=== PATIENT | male | born 1945 | race Caucasian/White ===

== ENCOUNTER 2020-04-07 07:31 | Outpatient (CLI) | payer MEDICARE, SELFPAY ==
[2020-04-07 08:19] LABS: Hematocrit 41.7 % (42.0-52.0); Hemoglobin 13.9 g/dL (14.0-18.0); Mean Corpuscular HGB Conc 33.3 g/dl (32-36); Mean Corpuscular Hemoglobin 31.5 pg (26-34); Mean Corpuscular Volume 94.6 fl (80-100); Mean Platelet Volume 9.2 fl (7.4-10.4); Platelet Count Result 221 k/mm3 (150-375); Red Blood Count 4.41 M/mm3 (4.6-6.20); Red Cell Distribution Width 12.9 % (11.5-14.5); White Blood Count 6.6 K/mm3 (4.5-10.0)
[2020-04-07 08:35] LABS: Hemoglobin A1C 5.9 % (<5.7); Potassium 4.1 mmol/L (3.4-5.0)
[2020-04-07 08:36] LABS: Alanine Aminotransferase 14 U/L (4-50); Albumin Level 4.1 g/dL (3.5-5.1); Alkaline Phosphatase 63 U/L (38-126); Aspartate Amino Transferase 23 U/L (17-59); Bilirubin,Total 0.5 mg/dL (0.2-1.3); Blood Urea Nitrogen 13 mg/dL (9-20); Calcium 8.8 mg/dL (8.4-10.2); Carbon Dioxide 29 mmol/L (22-30); Chloride 101 mmol/L (98-107); Estimated Glomerular Filt Rate > 60; Glucose 99 mg/dL (75-110); Sodium 134 mmol/L (137-145)
[2020-04-07 08:48] LABS: Creatinine Urine 78.4 mg/dL
[2020-04-07 09:06] LABS: Prostate Specific Antigen 0.9 ng/mL (< OR = 4.0)
[2020-04-07 09:12] LABS: MALB Creatinine Ratio < 7.7 mg/g (0-30); Microalbumin Urine Random < 6.0 mg/L (0-16.7)
== END 2020-04-07 07:32 | disposition home or self-care (01) ==
PROVIDERS: PCP Internal Medicine; Visit Provider Internal Medicine
DX: Z12.5 Encounter for screening for malignant neoplasm of prostate (principal); I10 Essential (primary) hypertension; E11.9 Type 2 diabetes mellitus without complications
CPT/HCPCS: 36415; 80053; 82043; 83036; 84153; 85027; G0103

== ENCOUNTER 2020-05-26 11:52 | Outpatient (CLI) | payer MEDICARE, SELFPAY ==
--- NOTE | ~2020-05-26 | XR_ITS ---
EXAMINATION: XR ribs BI 3V w CXR 2V INDICATION: Bilateral rib pain TECHNIQUE: PA and lateral views of the chest and 3 views of the bilateral ribs were obtained. COMPARISON: 07/12/2019 FINDINGS: There is subsegmental atelectasis of the lower lobes. No focal airspace opacities are ident ified. There is no pleural effusion or pneumothorax. There is moderate thoracic spondylosis. Healing bilateral rib fractures are noted. No acute rib fracture is identified. There is an unchanged T12 com pression fracture. IMPRESSION: 1. Subsegmental atelectasis. 2. Healed bilateral rib fractures and chronic T12 compression fracture without acute fracture identif ied. Reviewed, dictated and finalized at location A. IMPRESSION: 1. Subsegmental atelectasis. 2. Healed bilateral rib fractures and chronic T12 compression fracture without acute fracture identified.
--- NOTE | ~2020-05-26 | CT_ITS ---
EXAMINATION: CT lung screening DATE: 05/26/2020 12:36 INDICATION: Personal history of tobacco dependence, current smoker with 64 pack year history TECHNIQUE: Computed tomography (CT) of the chest was performed without intravenous contrast. The dose -length product (DLP) was 78.86 mGy-cm. Automated exposure control and iterative reconstruction techn ique were employed. COMPARISON: 07/16/2019 FINDINGS: There is mild emphysema. No suspicious pulmonary nodules are identified. There is no pleura l effusion or pneumothorax. Mild atelectasis is noted in the lung bases. Healing bilateral rib fractu res are noted. No pathologically enlarged thoracic lymph nodes are identified. The heart size is norm al. Calcified coronary artery atherosclerosis is noted. There is subendocardial fat deposition in the lateral wall of the left ventricle, consistent with prior myocardial infarction. Calcified pulmonary nodules and calcified right hilar and mediastinal lymph nodes are consistent with old granulomatous disease. There is stable fusiform enlargement of the ascending aorta which measures up to 4.2 cm. No dissection is identified. Punctate calcifications in an otherwise normal spleen likely represent heal ed granulomatous disease. IMPRESSION: 1. Lung-RADS category 2: Benign appearance or behavior. Continue annual screening with noncontrast lo w-dose chest CT in 12 months. Reviewed, dictated and finalized at location A. IMPRESSION: 1. Lung-RADS category 2: Benign appearance or behavior. Continue annual screeni ng with noncontrast low-dose chest CT in 12 months.
== END 2020-05-26 11:53 | disposition home or self-care (01) ==
PROVIDERS: PCP Internal Medicine; Visit Provider Internal Medicine
DX: Z87.891 Personal history of nicotine dependence (principal); R91.8 Other nonspecific abnormal finding of lung field
CPT/HCPCS: 71046; 71110; G0297

== ENCOUNTER 2020-07-22 13:30 | Outpatient (RCR) | payer MEDICARE, SELFPAY ==
[2020-04-30 15:48] VITALS: PULSE 63
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
--- NOTE | 2020-06-02 09:11 | PCCPR ---
Absent 06/02 & 06/03-feeling sore from his bruised ribs and exercising here on Sunday.
== END 2020-07-22 19:00 | disposition home or self-care (01) ==
LOC: ANHCPREHAB 13:30
PROVIDERS: PCP Internal Medicine
DX: Z95.5 Presence of coronary angioplasty implant and graft (principal)
CPT/HCPCS: 93798

== ENCOUNTER 2020-11-11 07:38 | Outpatient (CLI) | payer MEDICARE, SELFPAY ==
[2020-11-11 07:52] LABS: Basophils Percent Auto 0.5 % (0.2-1.2); Eosinophils Absolute Auto 0.2 K/mm3 (0-0.3); Eosinophils Percent Auto 2.7 % (0-4.4); Hematocrit 42.4 % (42.0-52.0); Hemoglobin 13.9 g/dL (14.0-18.0); Immature Granulocyte Absolute 0.02 K/mm3 (0.00-0.031); Immature Granulocyte Percent A 0.3 % (0-0.5); Lymphocytes Absolute Auto 1.83 K/mm3 (0.9-3.2); Lymphocytes Percent Auto 25.1 % (18.3-44.2); Mean Corpuscular HGB Conc 32.8 g/dl (32-36); Mean Corpuscular Hemoglobin 31.4 pg (26-34); Mean Corpuscular Volume 95.7 fl (80-100); Mean Platelet Volume 8.9 fl (7.4-10.4); Monocytes Absolute Auto 0.5 K/mm3 (0.1-0.6); Monocytes Percent Auto 7.4 % (2.6-8.5); Neutrophils Absolute Auto 4.7 K/mm3 (1.3-6.7); Platelet Count Result 209 k/mm3 (150-375); Red Blood Count 4.43 M/mm3 (4.6-6.20); Red Cell Distribution Width 12.3 % (11.5-14.5); White Blood Count 7.3 K/mm3 (4.5-10.0)
[2020-11-11 08:05] LABS: Alanine Aminotransferase 12 U/L (4-50); Albumin Level 4.1 g/dL (3.5-5.1); Alkaline Phosphatase 57 U/L (38-126); Anion Gap 3 mmol/L (8-16); Aspartate Amino Transferase 21 U/L (17-59); Bilirubin,Total 0.6 mg/dL (0.2-1.3); Blood Urea Nitrogen 14 mg/dL (9-20); Calcium 9.1 mg/dL (8.4-10.2); Carbon Dioxide 33 mmol/L (22-30); Chloride 102 mmol/L (98-107); Estimated Glomerular Filt Rate > 60; Glucose 100 mg/dL (75-110); Hemoglobin A1C 5.7 % (<5.7); Potassium 4.1 mmol/L (3.4-5.0); Sodium 138 mmol/L (137-145)
[2020-11-11 08:23] LABS: Creatinine Urine 86.5 mg/dL
[2020-11-11 08:35] LABS: MALB Creatinine Ratio < 6.9 mg/g (0-30); Microalbumin Urine Random < 6.0 mg/L (0-16.7)
[2020-11-11 08:38] LABS: Prostate Specific Antigen 0.9 ng/mL (< OR = 4.0)
== END 2020-11-11 07:39 | disposition home or self-care (01) ==
LOC: ANHLAB 07:41
PROVIDERS: PCP Internal Medicine; Visit Provider Internal Medicine
DX: E78.2 Mixed hyperlipidemia (principal); I25.10 Atherosclerotic heart disease of native coronary artery without angina pectoris; R73.01 Impaired fasting glucose; I10 Essential (primary) hypertension; Z12.5 Encounter for screening for malignant neoplasm of prostate
CPT/HCPCS: 36415; 80053; 82043; 83036; 84153; 85025; G0103

== ENCOUNTER 2021-08-19 09:37 | Outpatient (CLI) | payer MEDICARE, SELFPAY ==
[2021-08-19 10:19] LABS: Basophils Percent Auto 0.6 % (0.2-1.2); Eosinophils Absolute Auto 0.2 K/mm3 (0-0.3); Eosinophils Percent Auto 2.7 % (0-4.4); Hematocrit 44.4 % (42.0-52.0); Hemoglobin 14.6 g/dL (14.0-18.0); Immature Granulocyte Absolute 0.02 K/mm3 (0.00-0.031); Immature Granulocyte Percent A 0.3 % (0-0.5); Lymphocytes Absolute Auto 1.64 K/mm3 (0.9-3.2); Lymphocytes Percent Auto 24.2 % (18.3-44.2); Mean Corpuscular HGB Conc 32.9 g/dl (32-36); Mean Corpuscular Hemoglobin 32.3 pg (26-34); Mean Corpuscular Volume 98.2 fl (80-100); Mean Platelet Volume 8.9 fl (7.4-10.4); Monocytes Absolute Auto 0.5 K/mm3 (0.1-0.6); Neutrophils Absolute Auto 4.4 K/mm3 (1.3-6.7); Neutrophils Percent Auto 64.2 % (45.5-73.1); Platelet Count Result 201 k/mm3 (150-375); Red Blood Count 4.52 M/mm3 (4.6-6.20); Red Cell Distribution Width 12.7 % (11.5-14.5); White Blood Count 6.8 K/mm3 (4.5-10.0)
[2021-08-19 10:33] LABS: Alanine Aminotransferase 16 U/L (4-50); Albumin Level 4.2 g/dL (3.5-5.1); Alkaline Phosphatase 56 U/L (38-126); Anion Gap 4 mmol/L (8-16); Aspartate Amino Transferase 23 U/L (17-59); Bilirubin,Total 0.6 mg/dL (0.2-1.3); Blood Urea Nitrogen 15 mg/dL (9-20); Calcium 9.1 mg/dL (8.4-10.2); Carbon Dioxide 34 mmol/L (22-30); Chloride 100 mmol/L (98-107); Cholesterol 104 mg/dL (0-200); Estimated Glomerular Filt Rate > 60; Glucose 101 mg/dL (65-110); HDL Direct 34 mg/dL; Potassium 4.2 mmol/L (3.4-5.0); Sodium 138 mmol/L (137-145); Triglycerides 137 mg/dL (<150)
[2021-08-19 10:44] LABS: LDL Cholesterol Direct 42 mg/dL
[2021-08-19 11:03] LABS: Prostate Specific Antigen 0.8 ng/mL (< OR = 4.0); Thyroid Stimulating Hormone 0.779 uIU/mL (0.465-4.680)
[2021-08-19 11:37] LABS: Hemoglobin A1C 5.8 % (<5.7)
[2021-08-19 14:11] LABS: Vitamin D 25 Hydroxy 53.3 ng/mL
== END 2021-08-19 09:38 | disposition home or self-care (01) ==
LOC: ANHLAB 09:54
PROVIDERS: PCP Internal Medicine; Visit Provider Internal Medicine
DX: E11.9 Type 2 diabetes mellitus without complications (principal); I25.10 Atherosclerotic heart disease of native coronary artery without angina pectoris; E55.9 Vitamin D deficiency, unspecified; E78.2 Mixed hyperlipidemia; I10 Essential (primary) hypertension; Z12.5 Encounter for screening for malignant neoplasm of prostate
CPT/HCPCS: 36415; 80053; 80061; 82306; 83036; 84153; 84443; 85025; G0103

== ENCOUNTER 2021-09-22 09:10 | Outpatient (CLI) | payer MEDICARE, SELFPAY ==
--- NOTE | ~2021-09-22 | CT_ITS ---
EXAMINATION: CT lung screening DATE: 09/22/2021 09:31 INDICATION: Personal history of nicotine dependence TECHNIQUE: Computed tomography (CT) of the chest was performed without intravenous contrast. The dose -length product was 106.00 mGy-cm. Automated exposure control and iterative reconstruction technique were employed. COMPARISON: CT dated 05/26/2020 FINDINGS: No significant pleural or pericardial effusion. There is atherosclerosis of the aorta and c oronary arteries. No mediastinal lymphadenopathy. There are calcified granulomas of the spleen. There is bilateral lower and right middle lobe atelectasis. There are calcified granulomas of the lung par enchyma. There is 2 mm left upper lobe nodule which is not clearly calcified. There is a 2 mm left lo wer lobe nodule, also not definitely calcified. There is elevation of the right diaphragm, suspicious for phrenic nerve paralysis. There is a superior endplate compression fracture of T12 which is chron ic. No focal airspace consolidation. There is emphysema. No endobronchial lesions. No pneumothorax.. IMPRESSION: 1. Lung-RADS category 2: Benign appearance or behavior. Continue annual screening with noncontrast lo w-dose chest CT in 12 months. Reviewed, dictated and finalized at location B. WELDER IMPRESSION: 1. Lung-RADS category 2: Benign appearance or behavior. Continue annual screeni ng with noncontrast low-dose chest CT in 12 months.
== END 2021-09-22 09:11 | disposition home or self-care (01) ==
LOC: ANHIMG 09:14
PROVIDERS: PCP Internal Medicine; Visit Provider Internal Medicine
DX: Z12.2 Encounter for screening for malignant neoplasm of respiratory organs (principal); Z87.891 Personal history of nicotine dependence
CPT/HCPCS: 71271

== ENCOUNTER 2022-03-01 07:50 | Outpatient (CLI) | payer MEDICARE, SELFPAY ==
[2022-03-01 08:32] LABS: Alanine Aminotransferase 13 U/L (6-50); Albumin Level 4.4 g/dL (3.5-5.1); Alkaline Phosphatase 59 U/L (38-126); Anion Gap 6 mmol/L (8-16); Aspartate Amino Transferase 24 U/L (17-59); Bilirubin,Total 0.4 mg/dL (0.2-1.3); Blood Urea Nitrogen 13 mg/dL (9-20); Calcium 8.8 mg/dL (8.4-10.2); Carbon Dioxide 30 mmol/L (22-30); Chloride 103 mmol/L (98-107); Estimated Glomerular Filt Rate > 60; Glucose 101 mg/dL (65-110); Potassium 4.3 mmol/L (3.4-5.0); Sodium 139 mmol/L (137-145)
[2022-03-01 08:39] LABS: Hemoglobin A1C 5.7 % (<5.7)
[2022-03-01 08:40] LABS: Creatinine Urine 84.8 mg/dL
[2022-03-01 08:46] LABS: MALB Creatinine Ratio < 7.1 mg/g (0-30); Microalbumin Urine Random < 6.0 mg/L (0-16.7)
== END 2022-03-01 07:51 | disposition home or self-care (01) ==
PROVIDERS: PCP Internal Medicine; Visit Provider Internal Medicine
DX: R73.01 Impaired fasting glucose (principal); E78.2 Mixed hyperlipidemia
CPT/HCPCS: 36415; 80053; 82043; 83036

== ENCOUNTER 2022-03-22 09:41 | Outpatient (CLI) | payer MEDICARE, SELFPAY ==
--- NOTE | ~2022-03-22 | MR_ITS ---
EXAMINATION: MR lumbar spine wo/w con DATE: 03/22/2022 10:56 INDICATION: Other intervertebral disc degeneration, lumbar region. Chronic back pain. TECHNIQUE: Magnetic resonance imaging (MRI) of the lumbar spine was performed without and with 15 mL MultiHance intravenous contrast. Sequences included sagittal T2-weighted FSE, sagittal T2-weighted FS FSE, and sagittal and axial T1-weighted FSE. Postcontrast sequences included axial T2-weighted FSE a nd axial and sagittal T1-weighted FS FSE. COMPARISON: Lumbar spine MRI 11/20/2016 FINDINGS: There is 11 degrees dextroscoliosis of lumbar spine. There is 4 mm anterolisthesis of L1 on L2 and 4 mm retrolisthesis of L2 on L3 and L3 on L4. There is a chronic burst fracture of T12 with 3 /5 loss of height and retropulsion of bone 2 mm into central spinal canal. There is mildly decreased disc height at T12-L1 and severely decreased disc height from L1-L2 through L5-S1 with endplate remod eling. The distal spinal cord signal intensity is normal. The conus medullaris is at T12-L1. The foll owing disc levels are specifically discussed: L1-L2: The disc is bulging and has an annular fissure. There is severe bilateral facet joint osteoart hritis. There is mild bilateral neural foraminal stenosis. There is mild central canal stenosis. L2-L3: The disc is bulging and has an annular fissure. There is mild bilateral facet joint osteoarthr itis. There is mild bilateral neural foraminal stenosis. There is mild central canal stenosis. L3-L4: The disc is bulging and has an annular fissure. There is mild bilateral facet joint osteoarthr itis. There is mild right and moderate left neural foraminal stenosis. There is mild central canal st enosis. L4-L5: The disc is bulging and has an annular fissure. There is severe bilateral facet joint osteoart hritis. There is moderate right and mild left neural foraminal stenosis. There is mild central canal stenosis. L5-S1: The disc is bulging and has an annular fissure. There is severe right and moderate left facet joint osteoarthritis. There is mild bilateral neural foraminal stenosis. There is mild central canal stenosis. IMPRESSION: 1. Severe lumbar spondylosis, stable from 11/20/2016. 2. Lumbar dextroscoliosis. Reviewed, dictated and finalized at location A.
--- NOTE | ~2022-03-22 | MR_ITS ---
EXAMINATION: MR thoracic spine wo/w con DATE: 03/22/2022 10:56 INDICATION: Other intervertebral disc degeneration. Chronic back pain. TECHNIQUE: Magnetic resonance imaging (MRI) of the thoracic spine was performed without and with 15 m L MultiHance intravenous contrast. COMPARISON: Thoracic spine MRI 04/25/2011, chest CT 09/22/2021 FINDINGS: There is 10 degrees dextroscoliosis of thoracic spine. There is a chronic burst fracture of T12 with 3/5 loss of height and retropulsion of bone 2 mm into central spinal canal. There is mildly decreased disc height from T3-T4 through T7-T8, moderately decreased disc height at T8-T9, severely decreased disc height at T9-T10 and T10-T11, and mildly decreased disc height at T11-T12. At T3-T4, t here is a central protrusion with mild central canal stenosis. At T4-T5, there is a left central prot rusion with mild central canal stenosis. The discs are bulging from T5-T6 through T11-T12 with mild c entral canal stenosis. There is multilevel facet joint osteoarthritis, severe on the right at T4-T5, T5-T6, T10-T11, and T11-T12 and severe on the left at T11-T12. There is multilevel mild neural forami nal stenosis bilaterally. On the right, there is moderate neural foraminal stenosis at T10-T11. On th e left, there is moderate neural foraminal stenosis at T10-T11. The spinal cord signal intensity is n ormal. IMPRESSION: 1. Severe thoracic spondylosis, worsened from 04/25/2011. 2. Thoracic dextroscoliosis. Reviewed, dictated and finalized at location A.
== END 2022-03-22 09:42 | disposition home or self-care (01) ==
PROVIDERS: PCP Internal Medicine; Visit Provider Internal Medicine
DX: M51.36 Other intervertebral disc degeneration, lumbar region (principal); M47.894 Other spondylosis, thoracic region; M47.896 Other spondylosis, lumbar region
CPT/HCPCS: 72157; 72158; A9577

== ENCOUNTER 2022-09-19 08:30 | Outpatient (CLI) | payer MEDICARE, SELFPAY ==
[2022-09-19 09:26] LABS: Alanine Aminotransferase 17 U/L (6-50); Albumin Level 4.2 g/dL (3.5-5.1); Alkaline Phosphatase 63 U/L (38-126); Anion Gap 7 mmol/L (8-16); Aspartate Amino Transferase 22 U/L (17-59); Bilirubin,Total 0.5 mg/dL (0.2-1.3); Blood Urea Nitrogen 12 mg/dL (9-20); Calcium 8.8 mg/dL (8.4-10.2); Carbon Dioxide 30 mmol/L (22-30); Chloride 102 mmol/L (98-107); Cholesterol 105 mg/dL (0-200); Estimated Glomerular Filt Rate > 60; Glucose 101 mg/dL (65-110); HDL Direct 32 mg/dL; Sodium 139 mmol/L (137-145); Triglycerides 104 mg/dL (<150)
[2022-09-19 09:36] LABS: Hemoglobin A1C 6.2 % (<5.7)
[2022-09-19 09:38] LABS: LDL Cholesterol Direct 47 mg/dL
[2022-09-19 09:43] LABS: Vitamin D 25 Hydroxy 54.6 ng/mL
== END 2022-09-19 08:31 | disposition home or self-care (01) ==
PROVIDERS: Nurse Practitioner; PCP Internal Medicine; Visit Provider Internal Medicine
DX: E55.9 Vitamin D deficiency, unspecified (principal); E11.9 Type 2 diabetes mellitus without complications; E78.5 Hyperlipidemia, unspecified
CPT/HCPCS: 36415; 80053; 80061; 82306; 83036